=== PATIENT | male | born 1995 | race African-American/Black ===

== ENCOUNTER 2018-07-21 12:55 | Emergency (ER) | payer OTHER ==
[~2018-07-21] VITALS: Ht 180.3 cm; Wt 122.7 kg
[2018-07-21 13:48] LABS: BASO # 0.1 (0.0-0.2); BASO % 0.5 % (0.0-2.0); EOS % 0.1 % (0-4.0); GRAN # 11.7 (1.4-6.5); HEMATOCRIT 50.1 % (36.0-47.0); HEMOGLOBIN 17.1 g/dl (12.5-16.1); LYMPH # 1.2 (1.2-3.4); LYMPH % 8.4 % (20.0-51.0); MEAN CELL VOLUME 86 fl (80.0-95.0); MEAN CORPUSCULAR HEMOGLOBIN 30 pg (26.0-32.0); MEAN CORPUSCULAR HGB CONC 34 g/dl (33.0-37.0); MEAN PLATELET VOLUME 12.2 fl (7.4-10.4); MONO % 7.4 % (1.7-9.3); PLATELET COUNT 182 K/mm3 (130-400); REDCELL DISTRIBUTION WIDTH-CV 13.4 % (11.5-14.5)
[2018-07-21 13:59] LABS: BILIRUBIN,TOTAL 0.7 mg/dL (0.0-1.0); C-REACTIVE PROTEIN 0.9 mg/dL (0.0-0.9); CALCIUM 10.3 mg/dL (8.4-10.2); CREATININE, serum 1.47 mg/dL (0.66-1.25); POTASSIUM 4.1 mmol/L (3.4-5.0); TOTAL PROTEIN 8.9 gm/dL (6.4-8.2)
[2018-07-21 16:25] LABS: COLLECTION METHOD CLEAN CATCH
[2018-07-21 16:58] LABS: GRANULAR CAST >12 /lpf; MUCOUS Present /lpf; PH 5 (5-8); SQUAMOUS EPITHELIAL 0-2 /hpf; URINE APPEARANCE Hazy; URINE BACTERIA None Seen /hpf; URINE BILIRUBIN Negative (NEGATIVE); URINE BLOOD Negative (NEGATIVE); URINE COLOR Yellow; URINE GLUCOSE Negative (NEGATIVE); URINE KETONE 2+ (NEGATIVE); URINE LEUKOCYTE ESTERASE Negative (NEGATIVE); URINE NITRATE Negative (NEGATIVE); URINE PROTEIN(semi-quant) 2+ (NEGATIVE); URINE UROBILINOGEN Negative (NEGATIVE)
[2018-07-21 17:32] VITALS: BP 136/82; PULSE 90
== END 2018-07-21 17:32 | disposition home or self-care (01) ==
LOC: COL.ER 12:55
PROVIDERS: Physician Assistant
DX: E86.0 Dehydration (principal)
CPT/HCPCS: J2405; J7030

== ENCOUNTER 2020-07-19 12:23 | Emergency (ER) | payer OTHER ==
[~2020-07-19] VITALS: Ht 180.3 cm; Wt 118.2 kg
[2020-07-19 12:26] VITALS: TEMP 98.1
[2020-07-19 13:23] LABS: BASO # 0.1 (0.0-0.2); BASO % 0.4 % (0.0-2.0); EOS % 0.1 % (0-4.0); GRAN # 11.1 (1.4-6.5); GRAN % 79.1 % (42.2-75.2); HEMOGLOBIN 17.8 g/dl (13.5-18.0); LYMPH # 1.6 (1.2-3.4); MEAN CELL VOLUME 88 fl (80.0-100.0); MEAN CORPUSCULAR HEMOGLOBIN 30 pg (27.0-31.0); MEAN CORPUSCULAR HGB CONC 34 g/dl (33.0-37.0); MEAN PLATELET VOLUME 12.4 fl (7.4-10.4); MONO # 1.2 (0.1-0.6); MONO % 8.8 % (1.7-9.3); PLATELET COUNT 173 K/mm3 (130-400); RED BLOOD COUNT 6.03 M/mm3 (4.20-5.60); REDCELL DISTRIBUTION WIDTH-CV 12.9 % (11.5-14.5)
[2020-07-19 13:31] LABS: ALBUMIN 5.5 gm/dL (3.5-5.0); BILIRUBIN,TOTAL 1.2 mg/dL (0.0-1.0); CALCIUM 10.6 mg/dL (8.4-10.2); CREATININE, serum 1.53 (0.66-1.25); POTASSIUM 3.5 mmol/L (3.4-5.0); TOTAL PROTEIN 9.8 gm/dL (6.4-8.2)
[2020-07-19 15:20] VITALS: BP 1743/80; PULSE 89
== END 2020-07-19 15:20 | disposition home or self-care (01) ==
LOC: COL.ER 12:23
PROVIDERS: Emergency Medicine
DX: E86.0 Dehydration (principal); R51 Headache; Z87.891 Personal history of nicotine dependence; Z86.79 Personal history of other diseases of the circulatory system
CPT/HCPCS: J2405; J7030

== ENCOUNTER → 2021-03-03 | Outpatient (REF) | LOC: COL.LAB 01:39 | DX: Z02.83 Encounter for blood-alcohol and blood-drug test (principal) ==